=== PATIENT | male | born 1955 | race African-American/Black ===

== ENCOUNTER 2021-05-09 13:30 | Emergency (ER) | payer MEDICAID, OTHER ==
[~2021-05-09] VITALS: Ht 175.3 cm; Wt 70.3 kg
[~2021-05-09 13:30] MED LIST: ASPI-986 PO; DIAZ10TA PO; LEVA15HF4 IH; METF-414 PO; MOME13HF2 IH; PANT40TA51 PO; TOPUD PO
[2021-05-09] MEDS ORDERED: MECLIZINE 25MG TABLET PO ONE (14:15)
[2021-05-09] MEDS ORDERED: KETOROLAC 15MG/ML VIAL IV ONE (14:15)
[2021-05-09] MEDS ORDERED: SODIUM CHLORIDE 0.9% 1,000 ML IV ONE (14:15)
[2021-05-09 14:57] LABS: BASOPHILS % 1.3 % (0.0-2.0); EOSINOPHILS % 1.2 % (0.0-5.0); HEMATOCRIT. 39.3 % (42.0-52.0); HEMOGLOBIN. 12.7 g/dL (14.0-18.0); LYMPHOCYTES % 26.9 % (20.0-50.0); MEAN CORPUSCULAR HEMOGLOBIN 24.6 pg (28.0-32.0); MEAN CORPUSCULAR VOLUME 76.4 fL (80.0-94.0); MEAN PLATELET VOLUME 8.6 fl (7.4-10.4); MONOCYTES % 8.2 % (2.0-8.0); NEUTROPHILS % 62.4 % (40.0-76.0); PLATELET 154 x1000/uL (130-400); RED BLOOD CELL COUNT 5.15 mill/uL (4.7-6.1); RED CELL DISTRIBUTION WIDTH 15.9 % (11.6-14.6)
[2021-05-09 15:05] LABS: CHLORIDE 110 mEq/L (98-107)
[2021-05-09] MEDS ORDERED: IBUP-2028 MT (17:21)
[2021-05-09 18:50] VITALS: BP 130/80
== END 2021-05-09 18:53 | disposition home or self-care (01) ==
LOC: ER 13:30
DX: R42 Dizziness and giddiness (principal); R10.11 Right upper quadrant pain; F17.200 Nicotine dependence, unspecified, uncomplicated; J45.909 Unspecified asthma, uncomplicated; Z90.49 Acquired absence of other specified parts of digestive tract; Z79.899 Other long term (current) drug therapy; Z98.890 Other specified postprocedural states
CPT/HCPCS: 36415; 71045; 74176; 80053; 83690; 85025; 93005; 96361; 96374; 99285; J1885; J7030; J8597; A4565